=== PATIENT | male | born 1990 | race Caucasian/White ===

== ENCOUNTER 2023-09-26 08:01 | Outpatient (CLI) | payer OTHER, SELFPAY ==
--- NOTE | 2023-09-26 | ECHO_ITS ---
Patient Info Name: Ant Alves Age: 33 years : 1990 Gender: Male Ht: 72 in Wt: 215 lbs BSA: 2.25 m2 HR: 70 bpm BP: 126 / 75 mmHg Heart Rhythm: Sinus Rhythm Technical Quality: Fair Exam Date: 09/26/2023 8:46 AM Exam Location: [facility] Pulmonary Patient Status: Outpatient Admit Date: 09/26/2023 Staff Ordering Physician: AceJayashree PA-C Electrical And Instrument Mechanic: Dorota Meyer RDCS Attending Provider: Jayashree Lunsford PA-C Exam Type: CA echo doppler color flow Study Info Indications R07.9 - Chest pain, unspecified Complete two-dimensional, color flow and Doppler transthoracic echocardiogram is performed. Summary 1. Complete two-dimensional, color flow and Doppler transthoracic echocardiogram is performed. 2. Left ventricular chamber dimension is normal. 3. Left ventricular systolic function is normal, estimated at 65-70%. 4. Right ventricular systolic function is normal. 5. There is trace mitral valve regurgitation. 6. There is trace tricuspid valve regurgitation. 7. There is trace pulmonic regurgitation. Left Ventricle Left ventricular chamber dimension is normal. Left ventricular systolic function is normal, estimated at 65-70%. There is no increased left ventricular wall thickness. The left ventricular diastolic function is normal. Right Ventricle Right ventricular chamber dimension is normal. Right ventricular systolic function is normal. Left Atria Left atrial chamber dimension is normal. Right Atria Right atrial chamber dimension is normal. Atrial Septum Intact interatrial septum visualized by color flow imaging. Aortic Valve The aortic valve is trileaflet. There is no aortic valve stenosis. There is no aortic valve regurgitation. Pulmonic Valve The pulmonic valve is not well visualized. There is trace pulmonic regurgitation. Mitral Valve There is trace mitral valve regurgitation. Tricuspid Valve There is trace tricuspid valve regurgitation. Pericardium/Pleural There is no pericardial effusion. Inferior Vena Cava Dilated inferior vena cava with <50% collapse upon inspiration consistent with elevated right atrial pressure, 15 mmHg. Aorta The aortic root size at the sinus of Valsalva is normal. Left Ventricular Outflow Tract Name Value Normal LVOT 2D LVOT Diameter 2.0 cm LVOT Doppler LVOT Peak Gradient 6 mmHg LVOT Mean Gradient 3 mmHg LVOT VTI 22 cm LVOT VTI/AV VTI Ratio 0.8 LVOT Stroke Volume 74 ml LVOT CO 4.4 l/min LVOT CI 2.0 l/min/m2 Pulmonic Valve Name Value Normal RVOT Doppler RVOT Peak Gradient 2 mmHg PV Doppler PV Peak Gradient 4 mmHg Mitral Valve ---
--- NOTE | ~2023-09-26 | XR_ITS ---
XR chest 2V DATE: 09/26/2023 09:22 INDICATION: Atypical chest pain, chest tightness. History of asthma. TECHNIQUE: PA and lateral views COMPARISON: None FINDINGS: Normal heart size. No hilar or mediastinal enlargement. The lungs are normally inflated and clear of infiltrate or consolidation. No pleural effusion or pulmonary vascular congestion or pneumo thorax. Resection of the lateral aspect of the left clavicle. IMPRESSION: No active cardiopulmonary disease Reviewed, dictated and finalized at location L.
== END 2023-09-26 08:02 | disposition home or self-care (01) ==
PROVIDERS: PCP Physician Assistant; Visit Provider Physician Assistant
DX: R07.89 Other chest pain (principal)
CPT/HCPCS: 71046; 93306

== ENCOUNTER 2024-12-17 17:23 | Emergency (ER) | payer OTHER, SELFPAY ==
[2024-12-17 17:28] VITALS: BP 136/81; PULSE 65; RESP 17; TEMP 36.9; O2SAT 100
--- NOTE | 2024-12-17 17:42 | PC.NURSE ---
Pt. reports current tingling to LUE. Denies CP or SOB but states it feels like my heart is racing. HR is 64.
[2024-12-17 17:43] LABS: Glucose Point of Care 104 mg/dl (65-105)
[2024-12-17 18:22] LABS: Basophils Percent Auto 0.5 % (0.2-1.2); Eosinophils Absolute Auto 0.4 K/mm3 (0-0.3); Eosinophils Percent Auto 4.9 % (0-4.4); Hematocrit 51.5 % (42.0-52.0); Hemoglobin 18.3 g/dL (14.0-18.0); Immature Granulocyte Absolute 0.02 K/mm3 (0.00-0.031); Immature Granulocyte Percent A 0.3 % (0-0.5); Lymphocytes Absolute Auto 3.53 K/mm3 (0.9-3.2); Lymphocytes Percent Auto 44.5 % (18.3-44.2); Mean Corpuscular HGB Conc 35.5 g/dl (32-36); Mean Corpuscular Hemoglobin 32.4 pg (26-34); Mean Corpuscular Volume 91.3 fl (80-100); Mean Platelet Volume 10.5 fl (7.4-10.4); Neutrophils Absolute Auto 2.9 K/mm3 (1.3-6.7); Neutrophils Percent Auto 36.8 % (45.5-73.1); Platelet Count Result 266 k/mm3 (150-375); Red Blood Count 5.64 M/mm3 (4.6-6.20); Red Cell Distribution Width 12.8 % (11.5-14.5); White Blood Count 7.9 K/mm3 (4.5-10.0)
[2024-12-17 18:38] LABS: Alanine Aminotransferase 38 U/L (6-50); Albumin Level 4.9 g/dL (3.5-5.1); Alkaline Phosphatase 75 U/L (38-126); Anion Gap 12 mmol/L (4-12); Aspartate Amino Transferase 32 U/L (17-59); Bilirubin,Total 0.6 mg/dL (0.2-1.3); Blood Urea Nitrogen 16 mg/dL (9-20); Carbon Dioxide 25 mmol/L (22-30); Chloride 102 mmol/L (98-107); Estimated CRCL calculation 94 ml/min; Estimated Glomerular Filt Rate > 60; Glucose 99 mg/dL (65-110); Sodium 139 mmol/L (137-145)
--- NOTE | 2024-12-17 19:39 | ED_ITS ---
HPI - Extremity Problem General Chief complaint: Extremity Problem,Nontraumatic Stated complaint: dizzy, arms numb Time Seen by Provider: 12/17/24 19:11 History of Present Illness HPI Narrative: Patient is a 34-year-old male who presents to the emergency department this evening complaining of paresthesias to his bilateral. Patient states that initially it started in his left arm and then 30 minutes or an hour prior to arrival to the emergency department he felt the numbness on his right arm as well and this was concerning for the past showed decided to come in to the emergency department for further evaluation. Patient states that really he thought that he slept wrong but he when he started to notice the numbness in his right he decided come to the emergency department for further evaluation. Denies any similar symptoms in the past. States that he is currently on testosterone but due to an elevated hemoglobin level he was instructed to wean down which she has been doing. Denies any additional include/patient admits that he does have a history of anxiety. Denies any falls, trauma, or recent MVC denies any neck pain nose concerns at this time. Related Data Allergies Allergy/AdvReac Type Severity Reaction Status Date / Time No Known Allergies Allergy Mild Verified 12/17/24 17:24 Review of Systems 2 Review of Systems: All systems are reviewed and are negative unless stated otherwise in the HPI. REPLACED BY [facility] Social History Social History Alcohol intake: never Exam 2 Narrative: General: Alert, awake, afebrile, anxious. HEENT: PERRL, no rhinorrhea, no post nasal drip, oropharynx clear. Neck: Trachea midline, no JVD, no lymphadenopathy. Cardiovascular: Regular rate and rhythm, no murmurs, rubs or gallops, no peripheral edema. Respiratory: Clear to auscultation bilaterally, no tachypnea, no wheezing, no rhonchi, no rubs, no respiratory distress. Abdomen: Soft, nontender, nondistended, no rebound, no guarding, no peritoneal signs. Musculoskeletal: No joint swelling or deformity, normal muscle tone. Skin: No rashes or petechia, no signs of infection. Psychiatric: Alert and oriented, normal behavior and judgment for situation. Neurological: Alert and oriented to person, place, and time. Follows all commands. Cranial nerves 2-12 grossly intact, 5/5 motor strength in the bilateral upper and lower extremity, sensation intact and equal in the bilateral lower extremity, patient reports slight decrease in sensation along his legs left forearm extending from the elbow to downward, although patient does feel as though the numbness extends to shoulder joint, speech is clear and fluent. Course Vital Signs Vital signs: Vital Signs Temperature 98.5 F 12/17/24 17:28 Pulse Rate 65 12/17/24 17:28 Respiratory Rate 17 12/17/24 17:28 Blood Pressure 136/81 12/17/24 17:28 Pulse Oximetry 100 12/17/24 17:28 Oxygen Delivery Room Air 12/17/24 17:28 Temperature 98.5 F 12/17/24 17:28 Pulse Rate 65 12/17/24 17:28 Respiratory Rate 17 12/17/24 17:28 Blood Pressure 136/81 12/17/24 17:28 Pulse Oximetry 100 12/17/24 17:28 Oxygen Delivery Room Air 12/17/24 17:28 MDM - Extremity (Nontraumatic) MDM Narrative Medical decision making narrative: The patient was evaluated by myself in the emergency department. History is obtained from patient who is an independent historian and physical exam was performed. External medical records were reviewed at this time. IV was established and pertinent tests were ordered. EKG was obtained which revealed sinus rhythm rate of 69 beats per minute, no evidence of acute ischemia. EKG was independently interpreted by me and is currently pending official cardiology read. Laboratory results obtained revealing a hemoglobin of 18.3 which patient was aware of and was told that this is a side effect of his testosterone. Otherwise remainder of the patient's blood work is unremarkable. Imaging studies obtained included CXR which was independently interpreted by me revealing no acute cardiopulmonary process, which is pending final radiology interpretation. At this time, shared medical decision-making with patient regarding obtaining CT scan was discussed, however, patient declined. I did inform the patient that symptoms are likely due to a nerve impingement and informed him to follow up with his primary care physician. If he continues to have symptoms and he can return to the ED for further evaluation CT scans or follow-up with his primary care physician. Patient was informed that if the paresthesias are involving with his upper extremity this could be secondary to a cervical pathology and recommended outpatient cervical MRI and patient is agreeable with this plan. 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 I also did discuss with the patient that anxiety could be contributing to symptoms. Differential diagnosis considerations include nerve impingement, anxiety, electrolyte derangements, carpal tunnel syndrome. Comorbidities impacting this visit include none. I have evaluated and discussed social determinants of health with the patient that could potentially impact subsequent diagnosis and treatment plans. On repeat assessment of the patient, reevaluation revealed that the patient is doing well and is in no acute distress. Patient symptoms have improved since he arrived to our emergency department. Repeat vital signs were all reviewed and noted to be stable. Differential diagnosis and treatment plan were discussed with the patient at bedside. Patient agrees with discussion and after shared medical decision making agrees with discharge. All questions were answered to the patient's satisfaction. Patient will follow up with his PCP in 3-5 days. Patient was provided with strict return precautions and instructed to return to the emergency department if any new or worsening symptoms develop. The patient was discharged in stable condition. Lab Data 12/17/24 18:13 12/17/24 18:13 Labs: Lab Results 12/17/24 12/17/24 Range/Units 17:41 18:13 WBC 7.9 (4.5-10.0) K/mm3 RBC 5.64 (4.6-6.20) M/mm3 Hgb 18.3 H (14.0-18.0) g/dL Hct 51.5 (42.0-52.0) % MCV 91.3 (80-100) fl MCH 32.4 (26-34) pg MCHC 35.5 (32-36) g/dl RDW 12.8 (11.5-14.5) % Plt Count 266 (150-375) k/mm3 MPV 10.5 H (7.4-10.4) fl Immature Gran % (Auto) 0.3 (0-0.5) % Neut % (Auto) 36.8 L (45.5-73.1) % Lymph % (Auto) 44.5 H (18.3-44.2) % [place] % (Auto) 13.0 H (2.6-8.5) % Eos % (Auto) 4.9 H (0-4.4) % Baso % (Auto) 0.5 (0.2-1.2) % Lymph # (Auto) 3.53 H (0.9-3.2) K/mm3 [place] # (Auto) 1.0 H (0.1-0.6) K/mm3 Eos # (Auto) 0.4 H (0-0.3) K/mm3 Baso # (Auto) 0.0 (0.0-0.1) K/mm3 Abs Immat Gran (auto) 0.02 (0.00-0.031) K/mm3 Absolute Neuts (auto) 2.9 (1.3-6.7) K/mm3 Absolute Nucleated RBC 0.000 (0.0-0.012) K/mm3 Nucleated RBC % 0.0 (0.0-0.2) % Sodium 139 (137-145) mmol/L Potassium 4.0 (3.4-5.0) mmol/L Chloride 102 (98-107) mmol/L Carbon Dioxide 25 (22-30) mmol/L Anion Gap 12 (4-12) mmol/L BUN 16 (9-20) mg/dL Creatinine 1.09 (0.7-1.3) mg/dL Estim Creat Clear Calc 94 ml/min Estimated GFR > 60 (59 - ) Glucose 99 (65-110) mg/dL POC Capillary Glucose 104 (65-105) mg/dl Calcium 10.0 (8.4-10.2) mg/dL Magnesium 2.0 (1.6-2.3) mg/dL Total Bilirubin 0.6 (0.2-1.3) mg/dL AST 32 (17-59) U/L ALT 38 (6-50) U/L Alkaline Phosphatase 75 (38-126) U/L Total Protein 7.0 (6.3-8.2) g/dL Albumin 4.9 (3.5-5.1) g/dL Discharge Plan Discharge Clinical Impression: Arm paresthesia, left, Arm paresthesia, right Patient Disposition: Home, Self-Care Condition: Improved Instructions: Antibiotic Form, Paresthesia (ED) Additional Instructions: Please follow-up with your family doctor within the next 3-5 days. Return to the emergency department if any new or worsening symptoms develop. Patient Language: Romansh Follow-up/Referrals: Manpreet,WILLIAM Blanc [Primary Care Provider] - 3 Days Time of Disposition: 19:46
[2024-12-17 20:25] VITALS: BP 142/67; PULSE 60; RESP 16; O2SAT 99
--- OUTSIDE RECORDS SUMMARY | 2024-12-19 20:12 | XMS_ITS | Clinical Summary ---
Author Organization [facility] Address [address] 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
--- OUTSIDE RECORDS SUMMARY | 2024-12-19 20:12 | XMS_ITS | Data Portability ---
Author Organization [facility] [employer], Main Office Address [address] [place] [address] Care Team Providers Care Day Spa Manager Name Role Phone JAYASHREE MATSON Primary Care Provider JAYASHREE MATSON Referring Provider Assessment No assessment recorded. Plan of Treatment Reminders Order Date Submit Date Provider Last Modified By Organization Details Last Modified Time Details Appointments None recorded. Lab testosteron e, free + total, serum 2022 023 [email or web address] [facility], [address], [place], [address], 3 17:09:03 vitamin D, 25-hydroxy, total, serum 2022 023 [email or web address] [facility], [address], [place], [address], 3 17:09:11 vitamin B12 + folate, serum or blood 2022 023 [email or web address] [facility], [address], [place], [address], 3 17:09:20 iron, serum 2022 023 toya [facility], [address], [place], [address], 3 17:09:33 CMP, serum or plasma 2022 023 [email or web address] [facility], [address], [place], [address], 17:08:34 CBC w/ auto diff 2022 023 [place] [address] [facility], [address], [place], [address], 3 17:08:44 TSH + free T4, serum 2022 023 [place] [address] [facility], [address], [place], [address], 3 17:08:54 urinalysis, dipstick 2022 023 [place] [address] [facility], [address], [place], [address], 17:09:42 lipid panel, serum 2022 023 [place] [address] [facility], [address], [place], [address], 3 17:08:18 HbA1c (hemoglobin A1c), blood 2022 023 [place] [address] [facility], [address], [place], [address], 17:08:26 Referral urologist referral 2022 023 [email or web address] Guy MD, [address], [place], [address], 4 08:59:46 Procedures None recorded. Surgeries None recorded. Imaging US, echocardiog linda, transthorac ic, complete, w/ color flow 2022 023 [facility] [address], [place], [address], 15:48:11 XR, chest, 2 view 2022 023 KELLE Not available 19:45:42 Medication Orders Breo Ellipta 100 mcg-25 mcg/dose powder for inhalation 2022 023 KELLE [facility], [address] [place], [address], 10:53:43 Patient TargetsNo targets recorded. Patient InstructionsNo instructions recorded. Reason for Referral Urologist Referral for Male hypogonadism Referring Physician: Jayashree Matson, Internal Medicine, Encounter Date: 10/06/2023 Results Created Date Observation Date Name Description Value Unit Range Abnormal Flag Note LastModifiedBy Organization Detail LastModifiedTime 06/02/2006/01/2021 XR, ankle + foot No observ ation record ed. [id number], [place], [address], 01/25/2023 17:13:36 10/05/2009/26/2023 US, echoc ardio gram, trans thora cic, compl ete, w/ color flow No observ ation record ed. [address], [place], [address], 10/06/2023 10:33:56 10/06/20 23 09/26/2023 XR, chest , 2 view No observ ation record ed. [address], [place], [address], 10/22/2023 21:08:49 Result Notes None recorded. Problems Name Problem SNOMED Code Status Onset Date Resolution Date Notes Provider Name and Address Organization Details Recorded Time Anticipatory anxiety, mild 95974258 Active Not Available [facility] 17:12:47 Asthma 838564573 Active Not Available [facility] 17:12:47 Feeling stressed 518240662 Active Not Available [facility] 17:12:47 Infected insect bite 371124437 Active 2021 Not Available [facility] 3 17:12:48 Seasonal allergic rhinitis 295675475 Active Not Available [facility] 17:12:48 Atypical chest pain 972244829 Active 2022 RICHARD Bustos [address], [address], [place], [address] , [employer] 3 09:40:33 Male hypogonadism 65678808 Active 2022 RICHARD Bustos [address], [address], [place], [address] , [facility] 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 Procedures Surgical History None recorded. Imaging Results Imaging Date Name Status LastModified by Organiz ation Details LastModified Time 06/01/2021 XR, ankle + foot completed [id number], [place], [address], 01/25/2023 17:13:36 09/26/2023 US, echocardiog linda, transthorac ic, complete, w/ color flow completed [address] [place] [address], [address], 10/06/2023 10:33:56 09/26/2023 XR, chest, [address], [address], 10/22/2023 21:08:49 Procedure Notes None recorded. Medical Equipment None Reported. Allergies No known drug allergies Medications Name Sig Start Date Stop Date Status Note LastModified by Organization Details LastModified Time buspirone 5 mg tablet Take 1 tablet twice a day by oral route as directed. active Not Available Not Available No t Available citalopram 10 mg tablet Take 1 tablet every day by oral route. 09/17 completed Not Available Not Available Not Available prednisone 20 mg tablet 05/27 completed Not Available Not Available Not Available sulfamethox azole 800 mg-trimetho prim 160 mg tablet Take 1 tablet every 12 hours by oral route with meals. 09/22 completed Not Available Not Available Not Available indomethaci n 50 mg capsule TAKE 1 CAPSULE BY MOUTH THREE TIMES DAILY WITH MEALS FOR 7 DAYS active Not Available Not Available No t Available Advair Diskus 500 mcg-50 mcg/dose powder for inhalation 09/17 completed Not Available Not Available Not Available buspirone 7.5 mg tablet Take 1 tablet twice a day by oral route. 06/21 completed Not Available Not Available Not Available montelukast 10 mg tablet TAKE 1 TABLET DAILY 2022 active Not Available Not Available Not Avai lable albuterol sulfate HFA 90 mcg/actuati on aerosol inhaler USE 2 INHALATIO NS EVERY 4 TO 6 HOURS NEEDED PER ASTHMA ACTION PLAN active Not Available Not Available No t Available methylpheni date ER 27 mg tablet,exte nded release 24 hr 05/27 completed Not Available Not Available Not Available Zyrtec 2015 active Not Available Not Available Not Avai lable Symbicort 160 mcg-4.5 mcg/actuati on HFA aerosol inhaler INHALE 2 PUFFS BY MOUTH TWICE DAILY DIRECTED. 09/17 completed Not Available Not Available Not Available azelastine 205.5 mcg (0.15 %) nasal spray [place] 1 spray twice a day by intranasa l route as directed. active Not Available Not Available No t Available EpiPen 2-Kwame 0.3 mg/0.3 mL injection, auto-inject or active Not Available Not Available Not Available Breo Ellipta 100 mcg-25 mcg/dose powder for inhalation Inhale 1 puff every day by inhalatio n route. 2022 active Not Available Not Available Not Avai lable Breo Ellipta 200 mcg-25 mcg/dose powder for inhalation 09/17 completed Not Available Not Available Not Available fluticasone 113 mcg-salmete rol 14 mcg/actuati on breath activated powdr Inhale 1 inhalatio n twice a day by inhalatio n route. 10/06 completed Not Available Not Available Not Available Fluarix Quad (PF) 60 mcg (15 mcg x 4)/0.5 mL IM syringe ADM 0.5ML IM UTD active Not Available Not Available No t Available Flucelvax Quad (PF) 60 mcg (15 mcg x 4)/0.5 mL IM syringe ADM 0.5ML IM UTD 05/27 completed Not Available Not Available Not Available Vitals Date Recorded Body mass index (BMI) Body height Oxygen saturation Oxygen saturation in Arterial blood by Pulse oximetry Heart rate Body temperature Body weight Systolic blood pressure Diastolic blood pressure Provider Name and Address Organization Details Last Updated DateTime 1 26.8 kg/m2 185.42 cm 97 % 97 % 88 /min 98 [degF] 31033.2 5 g 120 mm[Hg] 70 mm[Hg] Not Available [facility] 3 17:12:24 Date Recorded Body mass index (BMI) Body height Oxygen saturation Oxygen saturation in Arterial blood by Pulse oximetry Heart rate Body temperature Body weight Systolic blood pressure Diastolic blood pressure Provider Name and Address Organization Details Last Updated DateTime 1 28.1 kg/m2 185.42 cm 97 % 97 % 60 /min 96.1 [degF] 94162.1 7 g 120 mm[Hg] 80 mm[Hg] Not Available [facility] 3 17:12:24 Date Recorded Body mass index (BMI) Body height Oxygen saturation Oxygen saturation in Arterial blood by Pulse oximetry Heart rate Respiratory rate Body temperature Body weight Systolic blood pressure Diastolic blood pressure Provider Name and Address Organization Details Last Updated DateTime 2 27.7 kg/m2 185.42 cm 98 % 98 % 63 /min 16 /min 97.8 [degF] 55041.4 g 122 mm[Hg] 80 mm[Hg] Not Available [facility] 3 17:12:24 Date Recorded Body height Body mass index (BMI) Body weight Body temperature Heart rate Oxygen saturation Oxygen saturation in Arterial blood by Pulse oximetry Systolic blood pressure Diastolic blood pressure Provider Name and Address Organization Details Last Updated DateTime 3 185.42 cm 27.3 kg/m2 91732.6 2 g 98.1 [degF] 63 /min 97 % 97 % 112 mm[Hg] 70 mm[Hg] Ashly Durbin RN [place] [facility] [place] [employer] [facility] 3 09:21:12 Date Recorded Body height Body temperature Body mass index (BMI) Body weight Respiratory rate Oxygen saturation Oxygen saturation in Arterial blood by Pulse oximetry Heart rate Systolic blood pressure Diastolic blood pressure Provider Name and Address Organization Details Last Updated DateTime 185.42 cm 97.3 [degF] 27.6 kg/m2 94828.6 g 16 /min 97 % 97 % 76 /min 112 mm[Hg] 70 mm[Hg] MISHA Gorman [facility] 10:28:39 Date Recorded Systolic blood pressure Diastolic blood pressure Provider Name and Address Organization Details Last Updated DateTime 10/06/2023 100 mm[Hg] 70 mm[Hg] RICHARD Bustos [address] [facility], [facility] [address], [place], [address], [facility] 10/06/2023 10:53:54 Social History Question Answer Notes LastModified by Organizat ion Details LastModified Time Tobacco Smoking Status Never Smoker MISHA Gorman null, [facility] 10/06/2023 10:24:03 What Is Your Level Of Alcohol Consumption? Moderate [id number] Information not available 01/25/2023 What Is Your Level Of Caffeine Consumption? Occasional [id number] Information not available 01/25/2023 How Much Tobacco Do You Chew? None [id number] Information not available 01/25/2023 In The 14 Days Before Symptom Onset, Have You Had Close Contact With A Laboratory-confir med COVID-19 While That Case Was Ill? No [email or web address] Information not available 10/06/2023 In The 14 Days Before Symptom Onset, Have You Had Close Contact With A Person Who Is Under Investigation For COVID-19 While That Person Was Ill? No [email or web address] Information not available 10/06/2023 Are You Currently Employed? Yes [email or web address] Information not available 10/06/2023 What Type Of Diet Are You Following? REGULAR [id number] Information not available 01/25/2023 Which Illicit Or Recreational Drugs Have You Used? None [email or web address] Information not available 10/06/2023 Do You Or Have You Ever Used E-cigarettes Or Vape? 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 No [email or web address] Information no t available 10/06/2023 Do You Use Insect Repellent Routinely? No Information not available 10/06/2023 What Is Your Relationship Status? [email or web address] Information not available 08/17/2023 Do You Use Your Seat Belt Or Car Seat Routinely? Yes [email or web address] Information not available 10/06/2023 Do You Have Smoke And Carbon Monoxide Detectors In Your Home? Yes [email or web address] Information not available 10/06/2023 Do You Or Have You Ever Used Smokeless Tobacco? Never Used Smokeless Tobacco [id number] Information not available 01/25/2023 How Much Tobacco Do You Smoke? No [id number] Information not available 01/25/2023 Do You Use Any Illicit Or Recreational Drugs? No [email or web address] Information not available 10/06/2023 Do You Use Sunscreen Routinely? Yes [email or web address] Information not available 10/06/2023 Have You Recently Traveled Abroad? No [email or web address] Information not available 10/06/2023 Do You Have Any Dietary Restrictions? No [email or web address] Information not available 10/06/2023 Do You Or Have You Ever Used Any Other Forms Of Tobacco Or Nicotine? No [email or web address] Information not available 10/06/2023 Sex: Unknown Functional Status Question Answer Note LastModified by Organizat ion Details LastModified Time What is your exercise level? Heavy Boxing every morning [id number] Information not available 01/25/2023 Mental Status None recorded. Family History Relationship Description Onset Age of this Age Resolved Age Notes LastModified by Organization Details LastModified Time Unspecified Relation Parkinson's disease [id number] Not available 01/25/2023 17:12:04 Medical History Condition Response HEARTBURN / REFLUX Y ANXIETY DISORDER Y Immunizations Vaccine Type Date Status Note Provider Nam e and Address Organization Details Recorded Time Influenza, split virus, quadrivalent, PF 09/02/2020 completed Not Available [facility] 3 17:13:31 Influenza, split virus, quadrivalent, PF 09/23/2022 completed Not Available [facility] 3 17:13:31 Influenza, split virus, quadrivalent, PF 09/17/2021 completed Not Available [facility] 17:13:31 Past Encounters Encounter ID Performer Location Encounter Start Date Encounter Closed Date Diagnosis/Indication Diagnosis SNOMED-CT Code Diagnosis ICD10 Code Diagnosis Note [id number] [facility] [place] [address] [place] [address] 05/27/2021 00:00:00 06/12/2021 19:46:15 [id number] [facility] [place] [address] [place] [address] 09/17/2021 00:00:00 09/26/2021 21:49:58 [id number] [facility] [place] [address] [place] [address] 09/23/2022 00:00:00 09/23/2022 17:20:[id number] [facility] [place] [address] [place] [address] 08/22/2023 09:16:31 08/22/2023 09:47:51 Atypical chest pain 549790157 R07.89 refer for baseline Echo w/doppler, and check baseline CXR with new onset of left sided chest symptoms, position exacerbate d Cholesterol screening 27 2487731 Z13.220 annual labs are due Diabetes m ellitus screening 525371699 Z13.1 diabetes screening is due Long-term drug therapy 527878633 Z79.899 pt did not completed labs last time ordered. orders given again. Endocrine/ metabolic screening 388273329 Z13.228 testostero ne , vit D, B12, folate and iron requested to be ordered again. [id number] RICHARD Bustos [facility] [place] [address] [place] [address] 10/06/2023 10:23:12 10/06/2023 10:55:28 Male hypogonadism 55354392 E29.1 pt feels that though his testostero ne labs were 371 , and that is low end of normal, he is symptomati c of hypogonadi sm and would like to consult with specialist on his options. referral given. Adult heal th examination 104019951 Z00.01 well exam completed. labs reviewed. Asthma 607511323 J45.90 9 stable and needs refill on Breo medication . Long-term drug therapy 249898437 Z79.899 Health Concerns Section Related Observation LastModified by Organization Detai ls LastModified Time None Recorded Concern Status LastModified by Organization Details LastModified Time None Recorded Advance Directives Directive None Recorded Payers Encounter Date Sequence Insurance Name Policy Number Policy Roman Covered Member ID Roman Member ID Guarantor Name 08/22/2023 1 [facility] [id number] Ant Alves [id number] Ant Alves 10/06/2023 1 [facility] [id number] Ant Ernie Long [id number] Ant Alves Notes Date Note Type Note Provider Name and Address Organization Details Recorded Time 05/27/2021 text/html General PainRepo rted bypatient.Location:Le ft ankle Severity:worsening;pa in level with meds 3/10;pain level without meds 8/10;interference with sleep Timing:intermittent; pain at night Quality:sharp; throbbing Duration:present <1 month Alleviating Factors:rest; Ice, Aggravating Factors:movement/posi tioning; twisting; touching,Notes:no injury noted. Not Available [facility] [employer] [facility] 06/12/2021 19:46:15 09/17/2021 text/html Anxiety, General ized DisorderReported bypatient.Associated Symptoms:no difficulty concentrating; no difficulty controlling worry; no difficulty swallowing; no anxiety; no excessive sweating; no hot flashes; no palpitations; no shortness of breath; no nausea; no diarrhea; no fatigue; no irritability; no muscle tension; no muscle aches; no trembling; no twitching; no headaches; no restlessness; no sleep disturbancesNotes:sta ble off medicationAsthma F/UReported bypatient.Quality:wel l-controlled with antiasthmatics Severity:able to sleep during episode; does not interfere with daily activities Status:improving Modifying Factors:avoidance of triggers; compliance with asthma regimen; short-acting beta agonist Associated Symptoms:no fever; no fatigue; no irritability; no cough; normal appetite; no changes in productivity; no shortness of breath Antiasthmatics:compli ant with maintenance asthma medication; no prior adverse reaction(s)Notes:stab le on medication. Not Available [facility] 09/26/2021 21:49:58 09/23/2022 text/html Asthma F/UReport ed bypatient.Quality:wel l-controlled with antiasthmatics Severity:able to sleep during episode; does not interfere with daily activities Status:improving Modifying Factors:avoidance of triggers; compliance with asthma regimen; short-acting beta agonist Associated Symptoms:no fever; no fatigue; no irritability; no cough; normal appetite; no changes in productivity; no shortness of breath Antiasthmatics:compli ant with maintenance asthma medication; no prior adverse reaction(s) Not Available [facility] 09/23/2022 17:20:28 08/22/2023 text/html Generic HPI TemplateReported bypatient.Location:[facility], feels like heart is moving around in a box Quality:tightness/mov ement sensation Onset/Timing:on and off for 2 months Context:no known trigger but sleeping position often triggers itNotes:denies SOB , fever, chills, productive cough, palpitations or heart rate changes. RICHARD Bustos [address], [place], [address], [facility] 08/22/2023 21:12:30 10/06/2023 text/html Asthma F/UReport ed bypatient.Severity:ab le to sleep during episode; does not interfere with daily activities Context:same Associated Symptoms:no dyspnea; no orthopnea; no snoring; no cough; no wheezing; no post nasal drip; no edema; no chest pain; no paroxysmal nocturnal dyspnea; no daytime somnolence; no sputum production; no hemoptysis; no GERD; no sleep attacksNotes:Pt needs a rf on his breo Wellness RICHARD Bustos [address], [address], [place], [address], [facility] 10/22/2023 21:12:14
--- OUTSIDE RECORDS SUMMARY | 2024-12-19 20:12 | XMS_ITS | Data Portability ---
Author Organization [facility] [address] [facility] [place] [address] Care Team Providers Care Insurance Marketing Rep Name Role Phone JOVANI MATSON Primary Care Provider Unavailab le Assessment No assessment recorded. Plan of Treatment Reminders Order Date Submit Date Provider Last Modified By Organization Details Last Modified Time Details Appointments None recorded. Lab vitamin D, 25-hydroxy , total, serum 2023 024 [facility], [address], [place], [address], 4 07:14:43 TSH + free T4, serum 2023 024 [place] [facility], [address], [place], [address], 4 07:14:41 CBC w/ auto diff 2023 024 [place] [facility], [address], [address], [place], [address], 4 07:14:43 CMP, serum or plasma 2023 024 [place] [facility], [address], [address], [place], [address], 4 07:14:42 lipid panel, serum 2023 024 [place] [facility], [address], [address], [place], [address], 4 07:14:41 HbA1c (hemoglobi n A1c), blood 2023 024 [place] [facility], [address], [address], [address], 4 07:14:42 Referral None recorded. Procedures None recorded. Surgeries None recorded. Imaging None recorded. Medication Orders albuterol sulfate HFA 90 mcg/actuat ion aerosol inhaler 2023 024 [facility], [address] [place] [address], [address], 10:01:11 Patient TargetsNo targets recorded. Patient InstructionsNo instructions recorded. Reason for Referral None Reported. Results Created Date Observation Date Name Description Value Unit Range Abnormal Flag Note LastModifiedBy Organization Detail LastModifiedTime 08/13/20 24 08/14/2024 LIPID PANEL W/ CHOL/ HDL RATIO cholesterol, total 143 mg/dL 100-19 9 Not Available [facility] ([facility]) [address] [place], [address], 08/14/2024 07:14:41 08/13/20 24 08/14/2024 LIPID PANEL W/ CHOL/ HDL RATIO triglyceride s 100 mg/dL 0-149 Not Available [facility] ([facility]) [address] [place], [address], 08/14/2024 07:14:41 08/13/20 24 08/14/2024 LIPID PANEL W/ CHOL/ HDL RATIO HDL cholesterol 39 mg/dL >39 below low normal Not Available [facility] ([facility]) [address] [place], [address], 08/14/2024 07:14:41 08/13/20 24 08/14/2024 LIPID PANEL W/ CHOL/ HDL RATIO VLDL cholesterol amol 19 mg/dL 5-40 Not Available [facility] ([facility]) [address] [place], [address], 08/14/2024 07:14:41 08/13/20 24 08/14/2024 LIPID PANEL W/ CHOL/ HDL RATIO LDL chol calc ([facility]) 85 mg/dL 0-99 Not Available [facility] ([facility]) [address] [place], [address], 08/14/2024 07:14:41 08/13/20 24 08/14/2024 LIPID PANEL W/ CHOL/ HDL RATIO T. chol/HDL ratio 3.7 ratio 0.0-5. 0 T. Chol/ HDL Ratio Men Women 1/2 Avg.R isk 3.4 3.3 Avg.R isk 5.0 4.4 2X Avg.R isk 9.6 7.1 3X Avg.R isk 23.4 11.0 Not Available [facility] ([facility]) [address] [facility], [place], [address], 08/14/2024 07:14:41 08/13/20 24 08/14/2024 TSH+F REE T4 TSH 2.320 uIU/m L 0.450- 4.500 Not Available [facility] ([facility]) [address] [place], [address], 08/14/2024 07:14:41 08/13/20 24 08/14/2024 TSH+F REE T4 T4,free(dire ct) 1.21 NG/dL 0.82-1 .77 Not Available [facility] ([facility]) [address] [place], [address], 08/14/2024 07:14:41 08/13/20 24 08/14/2024 COMP. METAB OLIC PANEL (14) glucose 90 mg/dL 70-99 Not Available [facility] ([facility]) [address] [place], [address], 08/14/2024 07:14:42 08/13/20 24 08/14/2024 COMP. METAB OLIC PANEL (14) BUN 14 mg/dL 6-20 Not Available [facility] ([facility]) [address] [facility], [place], [address], 08/14/2024 07:14:42 08/13/20 24 08/14/2024 COMP. METAB OLIC PANEL (14) creatinine 1.37 mg/dL 0.76-1 .27 above high normal Not Available [facility] ([facility]) [address], [place], [address], 08/14/2024 07:14:42 08/13/20 24 08/14/2024 COMP. METAB OLIC PANEL (14) eGFR 70 mL/mi n/1.7 3 >59 Not Available [facility] ([facility]) [address] [facility], [place], [address], 08/14/2024 07:14:42 08/13/20 24 08/14/2024 COMP. METAB OLIC PANEL (14) BUN/creatini ne ratio 10 9-20 Not Available [facility] ([facility]) [address] [facility], [place], [address], 08/14/2024 07:14:42 08/13/20 24 08/14/2024 COMP. METAB OLIC PANEL (14) sodium 140 mmol/ L 134-14 4 Not Available [facility] ([facility]) [address] [facility], [place], [address], 08/14/2024 07:14:42 08/13/20 24 08/14/2024 COMP. METAB OLIC PANEL (14) potassium 4.5 mmol/ L 3.5-5. 2 Not Available [facility] ([facility]) [address] [place], [address], 08/14/2024 07:14:42 08/13/20 24 08/14/2024 COMP. METAB OLIC PANEL (14) chloride 101 mmol/ L 96-106 Not Available [facility] ([facility]) [address] [facility], [place], [address], 08/14/2024 07:14:42 08/13/20 24 08/14/2024 COMP. METAB OLIC PANEL (14) carbon dioxide, total 24 mmol/ L 20-29 Not Available [facility] ([facility]) [address] [place], [address], 08/14/2024 07:14:42 08/13/20 24 08/14/2024 COMP. METAB OLIC PANEL (14) calcium 9.6 mg/dL 8.7-10 .2 Not Available [facility] ([facility]) [address] [place], [address], 08/14/2024 07:14:42 08/13/20 24 08/14/2024 COMP. METAB OLIC PANEL (14) protein, total 7.1 g/dL 6.0-8. 5 Not Available [facility] ([facility]) [address] [place], [address], 08/14/2024 07:14:42 08/13/20 24 08/14/2024 COMP. METAB OLIC PANEL (14) albumin 4.7 g/dL 4.1-5. 1 Not Available [facility] ([facility]) [address] [place], [address], 08/14/2024 07:14:42 08/13/20 24 08/14/2024 COMP. METAB OLIC PANEL (14) globulin, total 2.4 g/dL 1.5-4. 5 Not Available [facility] ([facility]) [address] [place], [address], 08/14/2024 07:14:42 08/13/20 24 08/14/2024 COMP. METAB OLIC PANEL (14) bilirubin, total 0.5 mg/dL 0.0-1. 2 Not Available [facility] ([facility]) [address] [place], [address], 08/14/2024 07:14:42 08/13/20 24 08/14/2024 COMP. METAB OLIC PANEL (14) alkaline phosphatase 67 IU/L 44-121 Not Available [facility] ([facility]) [address] [place], [address], 08/14/2024 07:14:42 08/13/20 24 08/14/2024 COMP. METAB OLIC PANEL (14) AST (SGOT) 27 IU/L 0-40 Not Available [facility] ([facility]) [address] [place], [address], 08/14/2024 07:14:42 08/13/20 24 08/14/2024 COMP. METAB OLIC PANEL (14) ALT (SGPT) 26 IU/L 0-44 Not Available [facility] ([facility]) [address] [place], [address], 08/14/2024 07:14:42 08/13/20 24 08/14/2024 HEMOG LOBIN A1C hemoglobin A1C 5.4 % 4.8-5. 6 Predi abete s: 5.7 - 6.4 Diabe holly: >6.4 Glyce wu contr ol for adult s with diabe holly: <7.0 Not Available [facility] ([facility]) [address] [place], [address], 08/14/2024 07:14:42 08/13/20 24 08/13/2024 CBC WITH DIFFE RENTI AL/PL ATELE T WBC 6.2 x10e3 /uL 3.4-10 .8 Not Available [facility] ([facility]) [address] [place], [address], 08/14/2024 07:14:43 08/13/20 24 08/13/2024 CBC WITH DIFFE RENTI AL/PL ATELE T RBC 5.68 x10e6 /uL 4.14-5 .80 Not Available [facility] ([facility]) [address] [place], [address], 08/14/2024 07:14:43 08/13/20 24 08/13/2024 CBC WITH DIFFE RENTI AL/PL ATELE T hemoglobin 18.5 g/dL 13.0-1 7.7 above high normal Not Available [facility] ([facility]) [address] [place], [address], 08/14/2024 07:14:43 08/13/20 24 08/13/2024 CBC WITH DIFFE RENTI AL/PL ATELE T hematocrit 55.0 % 37.5-5 1.0 above high normal Not Available [facility] ([facility]) [address] [place], [address], 08/14/2024 07:14:43 08/13/20 24 08/13/2024 CBC WITH DIFFE RENTI AL/PL ATELE T MCV 97 fL 79-97 Not Available [facility] ([facility]) [address] [place], [address], 08/14/2024 07:14:43 08/13/20 24 08/13/2024 CBC WITH DIFFE RENTI AL/PL ATELE T MCH 32.6 pg 26.6-3 3.0 Not Available [facility] ([facility]) [address] [place], [address], 08/14/2024 07:14:43 08/13/20 24 08/13/2024 CBC WITH DIFFE RENTI AL/PL ATELE T MCHC 33.6 g/dL 31.5-3 5.7 Not Available [facility] ([facility]) [address] [place], [address], 08/14/2024 07:14:43 08/13/20 24 08/13/2024 CBC WITH DIFFE RENTI AL/PL ATELE T RDW 12.8 % 11.6-1 5.4 Not Available [facility] ([facility]) [address] [place], [address], 08/14/2024 07:14:43 08/13/20 24 08/13/2024 CBC WITH DIFFE RENTI AL/PL ATELE T platelets 275 x10e3 /uL 150-45 0 Not Available [facility] ([facility]) [address] [facility], [place], [address], 08/14/2024 07:14:43 08/13/20 24 08/13/2024 CBC WITH DIFFE RENTI AL/PL ATELE T neutrophils 47 % notest ab. Not Available [facility] ([facility]) [address] [facility], [place], [address], 08/14/2024 07:14:43 08/13/20 24 08/13/2024 CBC WITH DIFFE RENTI AL/PL ATELE T lymphs 38 % notest ab. Not Available [facility] ([facility]) [address] [facility], [place], [address], 08/14/2024 07:14:43 08/13/20 24 08/13/2024 CBC WITH DIFFE RENTI AL/PL ATELE T monocytes 11 % notest ab. Not Available [facility] ([facility]) [address] [facility], [place], [address], 08/14/2024 07:14:43 08/13/20 24 08/13/2024 CBC WITH DIFFE RENTI AL/PL ATELE T eos 4 % notest ab. Not Available [facility] ([facility]) [address] [facility], [place], [address], 08/14/2024 07:14:43 08/13/20 24 08/13/2024 CBC WITH DIFFE RENTI AL/PL ATELE T basos 0 % notest ab. Not Available [facility] ([facility]) [address] [facility], [place], [address], 08/14/2024 07:14:43 08/13/20 24 08/13/2024 CBC WITH DIFFE RENTI AL/PL ATELE T neutrophils (absolute) 2.9 x10e3 /uL 1.4-7. 0 Not Available [facility] ([facility]) [address] [facility], [place], [address], 08/14/2024 07:14:43 08/13/20 24 08/13/2024 CBC WITH DIFFE RENTI AL/PL ATELE T lymphs (absolute) 2.3 x10e3 /uL 0.7-3. 1 Not Available [facility] ([facility]) [address] [facility], [place], [address], 08/14/2024 07:14:43 08/13/20 24 08/13/2024 CBC WITH DIFFE RENTI AL/PL ATELE T monocytes(ab solute) 0.7 x10e3 /uL 0.1-0. 9 Not Available [facility] ([facility]) [address] [facility], [place], [address], 08/14/2024 07:14:43 08/13/20 24 08/13/2024 CBC WITH DIFFE RENTI AL/PL ATELE T eos (absolute) 0.3 x10e3 /uL 0.0-0. 4 Not Available [facility] ([facility]) [address] [facility], [place], [address], 08/14/2024 07:14:43 08/13/20 24 08/13/2024 CBC WITH DIFFE RENTI AL/PL ATELE T baso (absolute) 0.0 x10e3 /uL 0.0-0. 2 Not Available [facility] ([facility]) [address] [place], [address], 08/14/2024 07:14:43 08/13/20 24 08/13/2024 CBC WITH DIFFE RENTI AL/PL ATELE T immature granulocytes 0 % notest ab. Not Available [facility] ([facility]) [address] [place], [address], 08/14/2024 07:14:43 08/13/20 24 08/13/2024 CBC WITH DIFFE RENTI AL/PL ATELE T immature grans (abs) 0.0 x10e3 /uL 0.0-0. 1 Not Available [facility] ([facility]) [address] [facility], [place], [address], 08/14/2024 07:14:43 08/13/20 24 08/14/2024 VITAM IN D, 25-HY DROXY vitamin D, 25-hydroxy 90.0 NG/mL 30.0-1 00.0 Vitam in D defic iency has been defin ed by the Insti tute of Medic ine and an Endoc rine Socie ty pract ice guide line as a level of serum 25-OH vitam in D less than 20 ng/mL (1,2) . The Endoc rine Socie ty went on to furth er defin e vitam in D insuf ficie ncy as a level betwe en 21 and 29 ng/mL (2). 1. IOM (Inst itute of Medic ine). 2010. Dieta ry refer ence intak es for calci um and D. Jeffy weir [place]: [facility] . 2. Eliana llamas MF, Suman goldsmith [place], Robert off-F errar i HAGER, et al. Evalu ation , treat ment, and preve ntion of vitam in D defic iency : an Endoc rine Socie ty clini amol pract ice guide line. JCEM. 2010; 96(7) :1911 -30. Not Available [facility] ([facility]) [address] [facility], [place], [address], 08/14/2024 07:14:43 Result Notes None recorded. Problems Name Problem SNOMED Code Status Onset Date Resolution Date Notes Provider Name and Address Organization Details Recorded Time Long-term drug therapy Active 2023 RICHARD Bustos Attn: Mana puga,[address] [facility], [place], [address], [facility] 4 09:52:07 Male hypogonadism 01341816 Active 2023 RICHARD Bustos Attn: Mana puga,[address] [place], [address], [place] [facility] 4 13:51:14 Asthma 202782131 Active 2023 RICHARD Bustos Attn: Mana puga,[address] [place], [address], [place] [facility] 4 13:51:15 Body mass index 25-29 - overweight 181100886 Active 2023 RICHARD Bustos Attn: Mana puga,[address] [place], [address], [facility] - [facility] 4 13:51:17 Vitamin D deficiency 70849832 Active 2023 RICHARD Bustos Attn: Mana puga,[address] [place], [address], [place] [facility] 4 13:52:19 Problem Notes None recorded. Medical Equipment None Reported. Allergies No known drug allergies Medications Name Sig Start Date Stop Date Status Note LastModified by Organization Details LastModified Time montelukast 10 mg tablet TAKE 1 TABLET DAILY 2023 active Not Available Not Available Not Avai lable albuterol sulfate HFA 90 mcg/actuatio n aerosol inhaler Inhale 2 puffs every 4 hours by inhalation route as needed. active Not Available Not Available No t Available Breo Ellipta 100 mcg-25 mcg/dose powder for inhalation USE 1 INHALATION DAILY 2023 active Not Available Not Available Not Avai lable Vitals Date Recorded Body height Provider Name an d Address Organization Details Last Updated DateTime 05/17/2024 182.88 cm Cinda Salguero MA [facility] 2023 09:30:58 Date Recorded Body mass index (BMI) Body weight Provider Name and Address Organization Details Last Updated DateTime 05/17/2024 29.2 kg/m2 25764.08 g Cinda Salguero MA [facility] 05/17/2024 09:31:01 Date Recorded Respiratory rate Provider Name a nd Address Organization Details Last Updated DateTime 05/17/2024 20 /min Cinda Salguero MA [facility] 05/17/2024 09:31:03 Date Recorded Oxygen saturation Oxygen saturation in Arterial blood by Pulse oximetry Provider Name and Address Organization Details Last Updated DateTime 05/17/2024 96 % 96 % Cinda Salguero MA [facility] 05/17/2024 09:33:26 Date Recorded Heart rate Provider Name an d Address Organization Details Last Updated DateTime 05/17/2024 72 /min Cinda Salguero MA [facility] 2023 09:33:27 Date Recorded Systolic blood pressure Diastolic blood pressure Provider Name and Address Organization Details Last Updated DateTime 05/17/2024 122 mm[Hg] 82 mm[Hg] Cinda Salguero MA [facility] 05/17/2024 09:35:02 Date Recorded Systolic blood pressure Diastolic blood pressure Provider Name and Address Organization Details Last Updated DateTime 05/17/2024 128 mm[Hg] 80 mm[Hg] RICHARD Bustos Attn: Accounting,[address] [place], [address], [facility] 05/17/2024 09:59:20 Social History Question Answer Notes LastModified by Organizat ion Details LastModified Time Tobacco Smoking Status Never Smoker Cinda Salguero MA null, [facility] 05/17/2024 09:31:54 Do You Have An Advance Directive? No Information n ot available 05/17/2024 What Is Your Level Of Alcohol Consumption? Occasional Information not available 05/17/2024 Are You Blind Or Do You Have Difficulty Seeing? No Information n ot available 05/17/2024 What Is Your Level Of Caffeine Consumption? Occasional Information not available 05/17/2024 In The 14 Days Before Symptom Onset, Have You Had Close Contact With A Laboratory-confirm ed COVID-19 While That Case Was Ill? No Information n ot available 05/17/2024 In The 14 Days Before Symptom Onset, Have You Had Close Contact With A Person Who Is Under Investigation For COVID-19 While That Person Was Ill? No Information not available 05/17/2024 Have You Been To An Area Known To Be High Risk For COVID-19? No Information not available 05/17/2024 Are You Currently Employed? Yes Information not available 05/17/2024 Are You Deaf Or Do You Have Serious Difficulty Hearing? No Information not available 05/17/2024 What Type Of Diet Are You Following? REGULAR Information n ot available 05/17/2024 What Was The Date Of Your Most Recent Tobacco Screening? 05/17/2024 Information not available 05/17/2024 Do You Use Your Seat Belt Or Car Seat Routinely? Yes Information not available 05/17/2024 Do You Have Smoke And Carbon Monoxide Detectors In Your Home? Yes Information not available 05/17/2024 Do You Feel Stressed (tense, Restless, Nervous, Or Anxious, Or Unable To Sleep At Night)? [id number] Information not available 05/17/2024 Do You Use Any Illicit Or Recreational Drugs? No Information not available 05/17/2024 Do You Use Sunscreen Routinely? Yes Information not available 05/17/2024 Has Tobacco Cessation Counseling Been Provided? Yes Information not available 05/17/2024 On What Date Was Tobacco Cessation Counseling Provided? 05/17/2024 Information not available 05/17/2024 Do You Or Have You Ever Used Any Other Forms Of Tobacco Or Nicotine? No Information not available 05/17/2024 Sex: Male Functional Status Question Answer Note LastModified by Organization D etails LastModified Time Are you able to care for yourself? Yes Information not available 05/17/2024 What is your exercise level? Moderate Information not available 05/17/2024 Mental Status None recorded. Family History Relationship Description Onset Age of this Age Resolved Age Notes LastModified by Organization Details LastModified Time Father No current problems or disability [email or web address] Not available 05/17 10:17:11 Mother No current problems or disability [email or web address] Not available 05/17 10:17:11 Medical History Condition Response Coronary Artery Disease N Other N Atrial Fibrillation N High Blood Pressure N Thyroid Problems N Kidney or Bladder Problems N Depression N COPD N Blood Clots N GI Problems N Skin Problems N Anemia N Heart Attack ([place]) N Diabetes N Anxiety Disorder N Muscle, Joint, or Bone Problems N Seizures/Epilepsy N Acid Reflux (GERD) N Cancer N Stroke N Allergies N Asthma Y High Cholesterol N Hepatitis N Liver Disease N Headaches N Osteoporosis N Heart Failure N Past Encounters Encounter ID Performer Location Encounter Start Date Encounter Closed Date Diagnosis/Indication Diagnosis SNOMED-CT Code Diagnosis ICD10 Code Diagnosis Note [id number] RICHARD Bustos [facility] [place] [address] [place] [address] 05/17/2024 09:22:21 05/17/2024 11:01:25 Body mass index 25-29 - overweight 408570885 Z68.29 BMI is stable in overweight category. Adult heal th examination 352706618 Z00.01 Annual wellness exam complete with routine fasting labs ordered for annual review. Asthma 349916331 J45.90 9 Patient needs refill on albuterol fast acting inhaler as needed. Stable on Breo Ellipta 100 mcg/25 mcg daily Male hypogonadism 372474 06 E29.1 Patient is taking testostero ne supplement ation from alternate provider and laboratory values through their office. Long-term drug therapy 533871110 Z79.899 Routine CBC and CMP labs ordered Vitamin D deficiency 347 10486 E55.9 History of vitamin-D deficiency is reported and updated laboratory values ordered Cholesterol screening 27 2710727 Z13.220 Fasting lipid panel is ordered Diabetes m ellitus screening 587333473 Z13.1 Annual A1c screening is due Thyroid di sorder screening 079055007 Z13.29 Routine thyroid function panel is ordered Health Concerns Section Related Observation LastModified by Organization Detai ls LastModified Time None Recorded Concern Status LastModified by Organization Details LastModified Time None Recorded Advance Directives Directive N: Payers Encounter Date Sequence Insurance Name Policy Number Policy Roman Covered Member ID Roman Member ID Guarantor Name 05/17/2024 1 [facility] [id number] Ant Alves [id number] Ant Alves Notes Date Note Type Note Provider Name and Address Organization Details Recorded Time 05/17/2024 text/html Asthma F/UReported bypatient.Notes: Patient is stable on albuterol inhaler and Breo Ellipta and Singulair 10 mg daily Patient is here for annual wellness exam. Patient is seeing alternate provider for treatment of hypogonadism. RICHARD Bustos Attn: Accounting,[address] [facility], [place], [address], [place] [facility] 06/01/2024 13:52:47
--- OUTSIDE RECORDS SUMMARY | 2024-12-19 20:12 | XMS_ITS | Encounter Summary ---
Author Organization [facility] Address 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
== END 2024-12-17 20:27 | disposition home or self-care (01) ==
PROVIDERS: Physician Assistant; Emergency Provider Emergency Medicine; PCP Physician Assistant
DX: R20.2 Paresthesia of skin (principal)
CPT/HCPCS: 36415; 80053; 82948; 83735; 85025; 93005; 99283

== ENCOUNTER 2025-01-21 12:38 | Outpatient (CLI) | payer OTHER, SELFPAY ==
--- NOTE | ~2025-01-21 | XR_ITS ---
Cervical Spine: AP, lateral, open-mouth views Clinical History: Pain Findings: The normal lordotic curve is maintained. The vertebral bodies and posterior elements appea r intact. The intervertebral disc spaces are well maintained. There is minimal facet arthropathy. Pr e-vertebral soft tissues are unremarkable. Impression: Minimal degenerative spondylosis, as above. Reviewed, dictated and finalized at location . MOTIVE SALES REPRESENTATIVE Impression: Minimal degenerative spondylosis, as above.
== END 2025-01-21 12:39 | disposition home or self-care (01) ==
LOC: MICIMG 12:40
PROVIDERS: PCP Physician Assistant; Visit Provider Physician Assistant
DX: M54.12 Radiculopathy, cervical region (principal)
CPT/HCPCS: 72040